=== PATIENT | male | born 1990 | race Caucasian/White ===

== ENCOUNTER 2020-12-15 13:37 | Emergency (ER) | payer OTHER ==
[~2020-12-15] VITALS: Ht 180.3 cm; Wt 186.9 kg
[2020-12-15 13:47] VITALS: BP 199/136
--- NOTE | 2020-12-15 14:15 | NUR ---
30 YEAR OLD MALE COMPLAINS OF LEFT LOWER LEG PAIN X TODAY. PT STATES SOME PAIN, REDNESS AND SWELLING. SITE WITHOUT HEAT. PT DENIES SOB. PT BS 159, BP 172/105, HR 120. PT AOX4, BREATHING EVEN AND UNLABORED, SKIN WARM AND DRY. BED IN LOWEST POSITION, LOCKED, BED RAIL UPX1. PMH - DENIES ALLERGIES - SULFAS
[2020-12-15] MEDS ORDERED: CEPH-588 PO (14:32)
[2020-12-15] MEDS ORDERED: IBUP-1842 PO (14:32)
[2020-12-15 14:45] VITALS: BP 172/104
--- NOTE | 2020-12-15 14:45 | NUR ---
Patient discharged with v/s stable. Written and verbal after care instructions about cellulitis given and explained. Patient alert, oriented and verbalized understanding of instructions. Ambulatory with steady gait. All questions addressed prior to discharge. ID band removed. Patient advised to follow up with PMD. Rx of keflex, ibuprofen given. Patient educated on indication of medication including possible reaction and side effects. Opportunity to ask questions provided and answered.
== END 2020-12-15 14:45 | disposition home or self-care (01) ==
LOC: MED 13:37
DX: L03.116 Cellulitis of left lower limb (principal); Z88.2 Allergy status to sulfonamides; Z79.899 Other long term (current) drug therapy
CPT/HCPCS: 99284

== ENCOUNTER 2021-05-06 09:14 | Emergency (ER) | payer MEDICAID, OTHER ==
[~2021-05-06] VITALS: Ht 154.9 cm; Wt 181.4 kg
[~2021-05-06 09:14] MED LIST: CEPH-588 PO; IBUP-1842 PO
[2021-05-06 09:20] VITALS: BP 202/134
--- NOTE | 2021-05-06 09:28 | NUR ---
[facility]: RIGHT EYE 20/25, LEFT EYE 20/40, BOTH EYE 20/50
--- NOTE | 2021-05-06 09:29 | NUR ---
PATIENT AMBULATED TO BED 4.
--- NOTE | 2021-05-06 09:32 | NUR ---
30 Y/O MALE BIB BROTHER C/O LEFT EYE IRRITAION X 3 DAYS. DENIES TRAUMA. BP 194/124 AT THIS TIME. EYE APPEARS SLIGHTLY REDDENED AT THIS TIME. NO DISCHARGE NOTED. DENIES ANY CHANGES IN VISION. ELEVATED B/P REPORTED TO ERMD. [facility]: RIGHT EYE 20/25, LEFT EYE 20/40, BOTH EYE 20/50 PMH: AUTISM ALLERGIES: DENIES HOME MEDS: DENIES
--- NOTE | 2021-05-06 09:37 | NUR ---
TATIANA Reed at bedside to assess pt
[2021-05-06] MEDS ORDERED: HYDR12.51 PO (09:43)
[2021-05-06] MEDS ORDERED: GAROS LEFT EYE (09:43)
[2021-05-06 10:03] VITALS: BP 194/124
--- NOTE | 2021-05-06 10:03 | NUR ---
Patient discharged with v/s stable. Written and verbal after care instructions given and explained. Patient alert, oriented and verbalized understanding of instructions. Ambulatory with steady gait. All questions addressed prior to discharge. ID band removed. Patient advised to follow up with PMD. Rx of GENTAMICIN SULFATE/HYDROCHLOROTHIAZIDE given. Patient educated on indication of medication including possible reaction and side effects. Opportunity to ask questions provided and answered.
== END 2021-05-06 10:03 | disposition home or self-care (01) ==
LOC: MED 09:14
DX: H10.9 Unspecified conjunctivitis (principal); I10 Essential (primary) hypertension; F84.0 Autistic disorder; Z88.2 Allergy status to sulfonamides; Z79.899 Other long term (current) drug therapy
CPT/HCPCS: 99283

== ENCOUNTER 2022-02-01 19:18 | Emergency (ER) | payer OTHER ==
[~2022-02-01] VITALS: Ht 180.3 cm; Wt 195.0 kg
[~2022-02-01 19:18] MED LIST changes: +GAROS LEFT EYE; +HYDR12.51 PO
[2022-02-01 19:30] VITALS: BP_SYST 224; BP_DIAS 140; BP_DIAS 146
--- NOTE | 2022-02-01 19:33 | NUR ---
TO LOBBY A/W BED AMBULATORY
[2022-02-01] MEDS ORDERED: hydrALAZINE 20 MG/ML VIAL IVP ONE ×2 (19:40→21:25)
--- NOTE | 2022-02-01 19:49 | NUR ---
PT AMBULATED TO BED #4 WITH CAREGIVER
--- NOTE | 2022-02-01 20:09 | NUR ---
RAD AT BEDSIDE
--- NOTE | 2022-02-01 20:20 | NUR ---
SL ESTABLISHED, LABS DRAWN
[2022-02-01 20:37] LABS: BASOPHILS # (AUTO) 0.1 K/uL (0.00-0.22); BASOPHILS % (AUTO) 0.8 % (0.0-2.0); EOSINOPHILS # (AUTO) 0.4 K/uL (0-0.4); EOSINOPHILS % (AUTO) 3.6 % (0.0-4.0); HEMOGLOBIN 15.3 g/dL (12.0-18.0); LYMPHOCYTES # (AUTO) 2.5 K/uL (2.0-11.5); LYMPHOCYTES % (AUTO) 22.1 % (20.5-51.1); MEAN CORPUSCULAR HEMOGLOBIN 28 pg (27-31); MEAN CORPUSCULAR HGB CONC 33 g/dL (33-37); MONOCYTES % (AUTO) 8.9 % (1.7-9.3); NEUTROPHILS # (AUTO) 7.2 K/uL (1.8-7.7); NEUTROPHILS % (AUTO) 64.6 % (42.2-75.2); PLATELET COUNT (AUTO) 272 K/uL (140-450); RED BLOOD CELL COUNT(AUTO) 5.53 MIL/uL (4.20-6.10); RED CELL DISTRIBUTION WIDTH 15.5 % (11.6-13.7); WHITE BLOOD COUNT (AUTO) 11.2 K/uL (4.8-10.8)
[2022-02-01 21:00] LABS: ALBUMIN 3.7 g/dL (3.4-5.0); ANION GAP 15.4 (8-16); ASPARTATE AMINOTRANSFERASE 15 U/L (15-37); CARBON DIOXIDE 26.3 mmol/L (21-32); CHLORIDE 103 mmol/L (98-107); CREATININE 1.1 mg/dL (0.6-1.3); GFR ARICAN-AMERICAN 101 mL/min (>90); GLUCOSE 99 mg/dL (74-106); POTASSIUM 3.7 mmol/L (3.5-5.1); SODIUM SERUM 141 mmol/L (136-145); TOTAL BILIRUBIN 0.5 mg/dL (0.0-1.0); UREA NITROGEN, BLOOD 13 mg/dL (7-18)
[2022-02-01] MEDS ORDERED: hydrALAZINE 20 MG/ML VIAL IM ONE ×2 (21:20→22:10)
--- NOTE | 2022-02-01 21:35 | NUR ---
AMBULATED TO BR WITH STEADY GAIT
[2022-02-01] MEDS ORDERED: CLON0.1T16 PO (22:28)
[2022-02-01 23:05] VITALS: BP 155/89
--- NOTE | 2022-02-01 23:05 | NUR ---
Patient discharged with v/s stable. Written and verbal after care instructions given and explained. Patient alert, oriented and verbalized understanding of instructions. Ambulatory with steady gait. All questions addressed prior to discharge. ID band removed. Patient advised to follow up with PMD. Rx of CATAPRES given. Patient educated on indication of medication including possible reaction and side effects. Opportunity to ask questions provided and answered.
[2022-02-02] MEDS ORDERED: TAM75 PO (03:48)
== END 2022-02-01 23:05 | disposition home or self-care (01) ==
LOC: MED 19:18
DX: I16.0 Hypertensive urgency (principal); Z20.822 Contact with and (suspected) exposure to COVID-19; J10.1 Influenza due to other identified influenza virus with other respiratory manifestations; Z88.2 Allergy status to sulfonamides
CPT/HCPCS: 36415; 71045; 80053; 84484; 85025; 87426; 87804; 93005; 96372; 96374; 99285; J0360

== ENCOUNTER 2022-03-22 03:09 | Observation (INO) | payer OTHER ==
[~2022-03-22] VITALS: Ht 180.3 cm; Wt 194.6 kg
[~2022-03-22 03:09] MED LIST changes: +CLON0.1T16 PO; +TAM75 PO
[2022-03-22 03:21] VITALS: BP 221/131
--- NOTE | 2022-03-22 03:33 | NUR ---
PT TAKEN TO BED 8
--- NOTE | 2022-03-22 03:35 | NUR ---
C/O High blood pressure x today. Per family reported, patient had high blood pressure, patient ran out of medication. (Last dose of medications on Wednesday) PMHx: Autism, HTN
--- NOTE | 2022-03-22 03:50 | NUR ---
DR RAJAN AT BEDSIDE FOR EXAM
--- NOTE | 2022-03-22 03:50 | NUR ---
Dr. Hidalgo examining patient.
[2022-03-22] MEDS ORDERED: hydrALAZINE 20 MG/ML VIAL IVP ONE (04:00)
[2022-03-22] MEDS ORDERED: ENALAPRILAT 2.5 MG/2 ML VIAL IVP ONE (04:00)
--- NOTE | 2022-03-22 04:03 | NUR ---
X-Ray at bedside.
[2022-03-22 04:49] LABS: BASOPHILS # (AUTO) 0.1 K/uL (0.00-0.22); BASOPHILS % (AUTO) 1.1 % (0.0-2.0); EOSINOPHILS # (AUTO) 0.4 K/uL (0-0.4); EOSINOPHILS % (AUTO) 3.8 % (0.0-4.0); HEMATOCRIT 44.5 % (36-52); LYMPHOCYTES # (AUTO) 2.6 K/uL (2.0-11.5); MEAN CORPUSCULAR HEMOGLOBIN 28 pg (27-31); MEAN CORPUSCULAR HGB CONC 34 g/dL (33-37); MONOCYTES # (AUTO) 0.9 K/uL (0.8-1.0); MONOCYTES % (AUTO) 9.3 % (1.7-9.3); NEUTROPHILS # (AUTO) 5.7 K/uL (1.8-7.7); NEUTROPHILS % (AUTO) 58.8 % (42.2-75.2); PLATELET COUNT (AUTO) 258 K/uL (140-450); RED BLOOD CELL COUNT(AUTO) 5.36 MIL/uL (4.20-6.10); RED CELL DISTRIBUTION WIDTH 15.1 % (11.6-13.7); WHITE BLOOD COUNT (AUTO) 9.7 K/uL (4.8-10.8)
[2022-03-22 05:03] LABS: ALBUMIN 3.3 g/dL (3.4-5.0); ANION GAP 12.2 (8-16); CARBON DIOXIDE 28.2 mmol/L (21-32); CREATININE 0.9 mg/dL (0.6-1.3); POTASSIUM 3.4 mmol/L (3.5-5.1); TOTAL BILIRUBIN 0.3 mg/dL (0.0-1.0)
[2022-03-22] MEDS ORDERED: LABETALOL 100 MG/20 ML VIAL IVP ONE (06:10)
[2022-03-22] MEDS ORDERED: LABETALOL 20 MG/4 ML VIAL IVP ONE (06:17)
--- NOTE | 2022-03-22 07:30 | NUR ---
REPORT RECEIVED FROM SIM GILBERT. ASSUMED CARE AT THIS TIME
--- NOTE | 2022-03-22 08:08 | NUR ---
pt provided w/ breakfast. pt awake and eating in bed
--- NOTE | 2022-03-22 09:44 | NUR ---
PATIENT HAS BEEN SCREENED AND CATEGORIZED MODERATE NUTRITION RISK. PATIENT WILL BE SEEN WITHIN 3-5 DAYS OF ADMISSION. 03/22/22-03/27/[address]
[2022-03-22] MEDS ORDERED: guaiFENesin DM 200/20 MG-10 ML 10 ML UDC PO PRN (09:45)
[2022-03-22] MEDS ORDERED: ONDANSETRON 4 MG/2 ML VIAL IM/IVP PRN (09:45)
[2022-03-22] MEDS ORDERED: ZOLPIDEM 5 MG TAB PO PRN (09:45)
[2022-03-22] MEDS ORDERED: DOCUSATE SODIUM 100 MG GELCAP PO PRN (09:45)
[2022-03-22] MEDS ORDERED: POTASSIUM CHLORIDE 10 MEQ TABER PO PRN (09:45)
[2022-03-22] MEDS ORDERED: ACETAMINOPHEN 325 MG TAB PO PRN (09:45)
[2022-03-22] MEDS ORDERED: HYDROcodone/APAP 7.5/325 MG 1 TAB PO PRN (09:45)
[2022-03-22] MEDS ORDERED: hydrALAZINE 20 MG/ML VIAL IVP PRN ×2 (09:45→14:15)
[2022-03-22] MEDS ORDERED: NACL 0.9% 500 ML IV SCH (09:50)
[2022-03-22 10:51] LABS: PROTHROMBIN TIME 9.9 secs (10.8-13.4)
[2022-03-22 10:57] LABS: CHOL/HDL RATIO 3.3 (1-4.5); FREE T4 (FREE THYROXINE) 0.77 ng/dL (0.76-1.46); MAGNESIUM 2.1 mg/dL (1.8-2.4); PHOSPHORUS 2.9 mg/dL (2.5-4.9); THYROID STIMULATING HORMONE 1.81 uIU/mL (0.34-3.74)
--- NOTE | 2022-03-22 11:19 | NUR ---
MD KAYE AT BEDSIDE FOR EVALUATION
[2022-03-22 12:47] VITALS: BP 151/90
--- NOTE | 2022-03-22 13:00 | NUR ---
pt provided w/ lunch. pt awake, repositioned and eating in bed
--- NOTE | 2022-03-22 13:30 | NUR ---
PT TAKEN TO CT VIA WHEELCHAIR
[2022-03-22] MEDS ORDERED: LABETALOL 100 MG/20 ML VIAL IV PRN (14:15)
--- NOTE | 2022-03-22 14:40 | NUR ---
raymond gaston informed about ama, acknowleged at this tmi
--- NOTE | 2022-03-22 14:43 | NUR ---
pt brother gillian would like to take brothers home ama at this time. Patient does not wish to proceed with medical care recommended by Jes JAIMES. pt brother gillian given information related to possible complications, up to and including , which could occur as a result of leaving hospital at this time. pt brother gillian verbalizes understanding of risks involved leaving against medical advice. pt brother has signed AMA form.
[2022-03-22] MEDS ORDERED: POTASSIUM CHLORIDE 10 MEQ TABER PO SCH (15:00)
[2022-03-22] MEDS ORDERED: carvediloL 12.5 MG TAB PO SCH (21:00)
[2022-03-23] MEDS ORDERED: lisinopriL 20 MG TAB PO SCH (09:00)
[2022-03-23] MEDS ORDERED: PANTOPRAZOLE 40 MG TABEC PO SCH (09:00)
[2022-03-23 09:06] LABS: T4 (THYROXINE) 4.8 ug/dL (4.5-12.0)
== END 2022-03-22 14:40 | disposition left against medical advice (07) ==
LOC: MED 03:09 → MTU 06:17
PROVIDERS: ADMIT Family Medicine; ATTEND Family Medicine
DX: I16.1 Hypertensive emergency (principal); Z20.822 Contact with and (suspected) exposure to COVID-19; I16.0 Hypertensive urgency; I10 Essential (primary) hypertension; E87.6 Hypokalemia; E44.1 Mild protein-calorie malnutrition; E78.5 Hyperlipidemia, unspecified; E66.01 Morbid (severe) obesity due to excess calories; F84.0 Autistic disorder; Z79.899 Other long term (current) drug therapy
CPT/HCPCS: 36415; 70450; 71045; 80053; 80061; 82150; 83036; 83690; 83735; 83880; 84100; 84436; 84439; 84443; 84479; 84484; 85025; 85379; 85610; 85730; 87426; 93005; 96361; 96374; 96375; 99291; G0378; J0360; J3490; Q0092

== ENCOUNTER 2022-03-31 11:48 | Emergency (ER) | payer OTHER ==
[~2022-03-31] VITALS: Ht 180.3 cm; Wt 191.0 kg
[~2022-03-31 11:48] MED LIST changes: -CEPH-588 PO; -TAM75 PO
[2022-03-31 12:13] VITALS: BP 142/93
--- NOTE | 2022-03-31 12:41 | NUR ---
31/M BIB BROTHER REFERRED FROM PCP. STATES PATIENT WAS BEING SEEN FOR A FOLLOW UP APPOINTMENT AND WAS REFERRED TO ED FOR HIGH BLOOD PRESSURE IN OFFICE 187/119. PATIENT GIVEN 0.3 CLONIDINE BEFORE BEING SENT HERE, BP IN TRIAGE 142/93. PATIENT HAS NO OTHER COMPLAINTS.
[2022-03-31 15:03] VITALS: BP 129/85
[2022-03-31 15:03] LABS: BASOPHILS # (AUTO) 0.1 K/uL (0.00-0.22); BASOPHILS % (AUTO) 1.1 % (0.0-2.0); EOSINOPHILS # (AUTO) 0.2 K/uL (0-0.4); EOSINOPHILS % (AUTO) 2.2 % (0.0-4.0); HEMATOCRIT 44.9 % (36-52); HEMOGLOBIN 15.1 g/dL (12.0-18.0); LYMPHOCYTES # (AUTO) 1.8 K/uL (2.0-11.5); LYMPHOCYTES % (AUTO) 20.3 % (20.5-51.1); MEAN CORPUSCULAR HEMOGLOBIN 28 pg (27-31); MEAN CORPUSCULAR HGB CONC 34 g/dL (33-37); MEAN CORPUSCULAR VOLUME 83.2 fL (80-94); MONOCYTES # (AUTO) 0.8 K/uL (0.8-1.0); MONOCYTES % (AUTO) 8.8 % (1.7-9.3); NEUTROPHILS # (AUTO) 5.9 K/uL (1.8-7.7); NEUTROPHILS % (AUTO) 67.6 % (42.2-75.2); PLATELET COUNT (AUTO) 280 K/uL (140-450); RED CELL DISTRIBUTION WIDTH 15.2 % (11.6-13.7); WHITE BLOOD COUNT (AUTO) 8.7 K/uL (4.8-10.8)
[2022-03-31 15:24] LABS: ANION GAP 12.1 (8-16); CARBON DIOXIDE 28.7 mmol/L (21-32); POTASSIUM 3.8 mmol/L (3.5-5.1)
--- NOTE | 2022-03-31 15:41 | NUR ---
Patient discharged with v/s stable. Written and verbal after care instructions ABOUT HYPERTENSION given and explained. Patient verbalized understanding. Ambulatory with steady gait. All questions addressed prior to discharge. Advised to follow up with PMD.
== END 2022-03-31 15:41 | disposition home or self-care (01) ==
LOC: MED 11:48
DX: I10 Essential (primary) hypertension (principal); Z88.2 Allergy status to sulfonamides; Z79.899 Other long term (current) drug therapy
CPT/HCPCS: 36415; 80048; 84484; 85025; 99283